=== PATIENT | female | born 1965 | race Caucasian/White ===

== ENCOUNTER 2018-07-13 07:08 | Emergency (ER) | payer OTHER ==
[2018-07-13] MEDS ORDERED: hydrOXYzine HCl 25 MG TAB ONE (07:37)
[2018-07-13] MEDS ORDERED: LORAZEPAM 1 MG TABLET ONE (07:37)
--- NOTE | 2018-07-13 08:02 | EDPHYS ---
Physician Documentation [facility] Name: Fortino Brennan Age: 53 yrs Sex: Female : 1965 Arrival Date: 07/13/2018 Time: 07:11 Bed 16 Private MD: Benjy Hernandez H ED Physician Uche Sesay HPI: 07/13 07:49 This 53 yrs old Female presents to ER via Ambulatory with complaints of Hives.snw 07:49 Onset: The symptoms/episode began/occurred suddenly, today, and became persistent. snw Associated signs and symptoms: Pertinent positives: itching. Modifying factors: The patient symptoms are alleviated by nothing. The patient has experienced a previous episode, s/s lasted 10 months. It is unknown whether or not the patient has recently seen a physician. just finished half triathalon . 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 - Social history:: Smoking status: Patient/guardian denies using tobacco, Patient/guardian denies using alcohol. - Ebola Screening: : Patient negative for fever greater than or equal to 101.5 degrees Fahrenheit, and additional compatible Ebola Virus Disease symptoms Patient denies exposure to infectious person Patient denies travel to an Ebola-affected area in the 21 days before illness onset. ROS: 07:49 Constitutional: Negative for fever, chills, and weight loss, Eyes: Negative for injury, snw pain, redness, and discharge, ENT: Negative for injury, pain, and discharge, Neck: Negative for injury, pain, and swelling, Cardiovascular: Negative for chest pain, palpitations, and edema, Respiratory: Negative for shortness of breath, cough, wheezing, and pleuritic chest pain, Abdomen/GI: Negative for abdominal pain, nausea, vomiting, diarrhea, and constipation, Back: Negative for injury and pain, : Negative for injury, bleeding, discharge, and swelling, MS/Extremity: Negative for injury and deformity, Neuro: Negative for headache, weakness, numbness, tingling, and seizure. 07:49 Skin: Positive for rash. Exam: 07:47 Constitutional: This is a well developed, well nourished patient who is awake, alert, snw and in no acute distress. Eyes: Pupils equal round and reactive to light, extra-ocular motions intact. Lids and lashes normal. Conjunctiva and sclera are non-icteric and not injected. Cornea within normal limits. Periorbital areas with no swelling, redness, or edema. ENT: Nares patent. No nasal discharge, no septal abnormalities noted. Tympanic membranes are normal and external auditory canals are clear. Oropharynx with no redness, swelling, or masses, exudates, or evidence of obstruction, uvula midline. Mucous membranes moist. Neck: Trachea midline, no thyromegaly or masses palpated, and no cervical lymphadenopathy. Supple, full range of motion without nuchal rigidity, or vertebral point tenderness. No Meningismus. Chest/axilla: Normal chest wall appearance and motion. Nontender with no deformity. No lesions are appreciated. Cardiovascular: Regular rate and rhythm with a normal S1 and S2. No gallops, murmurs, or rubs. Normal PMI, no JVD. No pulse deficits. Respiratory: Lungs have equal breath sounds bilaterally, clear to auscultation and percussion. No rales, rhonchi or wheezes noted. No increased work of breathing, no retractions or nasal flaring. Abdomen/GI: Soft, non-tender, with normal bowel sounds. No distension or tympany. No guarding or rebound. No evidence of tenderness throughout. MS/ Extremity: Pulses equal, no cyanosis. Neurovascular intact. Full, normal range of motion. Neuro: Awake and alert, GCS 15, oriented to person, place, time, and situation. Cranial nerves II-XII grossly intact. Motor strength 5/5 in all extremities. Sensory grossly intact. Cerebellar exam normal. Normal gait. 07:47 Head/face: Noted is swelling, that is mild, of the right jaw and left jaw, of the urticarial . 07:47 Back: mildly Sukumar tree shaped rash. 07:47 Skin: Appearance: normal except for affected area, urticarial rash to trunk and face. Vital Signs: 07:20 BP 159 / 104; Pulse 67; Resp 18; Temp 98.4(O); Pulse Ox 100% on R/A; Weight 68.04 kg; hj Height 5 ft. 9 in. (175.26 cm); 07:58 BP 131 / 85; Pulse 69; Resp 18; Pulse Ox 100% on R/A; hj 08:14 BP 130 / 87; Pulse 69; Resp 18; Pulse Ox 100% on R/A; hj 07:20 Body Mass Index 22.15 (68.04 kg, 175.26 cm) hj MDM: 07:13 Patient medically screened. snw 08:02 Data reviewed: vital signs, nurses notes. Data interpreted: Pulse oximetry: on room air snw is 100 %. Interpretation: normal. Counseling: I had a detailed discussion with the patient and/or guardian regarding: the historical points, exam findings, and any diagnostic results supporting the discharge/admit diagnosis, the presence of at least one elevated blood pressure reading (>120/80) during this emergency department visit, the need for outpatient follow up, to return to the emergency department if symptoms worsen or persist or if there are any questions or concerns that arise at home. Response to treatment: the patient's symptoms have markedly improved after treatment. Special discussion: I have referred the patient to see his PCP for further evaluation of high blood pressure. Based on the history and exam findings, there is no indication for further emergent testing or inpatient evaluation. I discussed with the patient/guardian the need to see the nail technician teacher for further evaluation of the symptoms. Administered Medications: 07:20 Drug: Atarax 50 mg Route: PO; 08:15 Follow up: Response: No adverse reaction 07:20 Drug: Ativan 2 mg Route: PO; hj 08:16 Follow up: Response: No adverse reaction Disposition: 12:10 Co-signature as Attending Physician, Uche Sesay MD I agree with the assessment and kdr plan of care. Disposition: 07/13/18 08:01 Discharged to Home. Impression: Urticaria, unspecified. - Condition is Stable. - Discharge Instructions: Hives, Pityriasis Rosea. - Prescriptions for Vistaril 50 mg Oral capsule - take 1 capsule by ORAL route 4 times per day Prn itching; 30 capsule. - Medication Reconciliation Form, Thank You Letter, Antibiotic Education, Prescription Opioid Use form. - Follow up: Benjy Hernandez DO; When: 2 - 3 days; Reason: Recheck today's complaints, Continuance of care, Re-evaluation by your physician. Follow up: Emergency Department; When: As needed; Reason: Recheck today's complaints, Continuance of care, Re-evaluation by your physician. - Problem is an acute exacerbation. - Symptoms are unchanged. Signatures: Uche Sesay MD MD [facility] Vickie Heard, LEAD INFRASTRUCTURE ARCHITECT-C LEAD INFRASTRUCTURE ARCHITECT-Csnw Juvenal Zamora RN RN hj Corrections: (The following items were deleted from the chart) 08:16 08:01 07/13/2018 08:01 Discharged to Home. Impression: Urticaria, unspecified. hj Condition is Stable. Forms are Medication Reconciliation Form, Thank You Letter, Antibiotic Education, Prescription Opioid Use. Follow up: Benjy Hernandez; When: 2 - 3 days; Reason: Recheck today's complaints, Continuance of care, Re-evaluation by your physician. Follow up: Emergency Department; When: As needed; Reason: Recheck today's complaints, Continuance of care, Re-evaluation by your physician. Problem is an acute exacerbation. Symptoms are unchanged. snw
--- NOTE | 2018-07-13 08:02 | ER ---
Nurse's Notes [facility] Name: Fortino Brennan Age: 53 yrs Sex: Female : 1965 Arrival Date: 07/13/2018 Time: 07:11 Bed 16 Private MD: Benjy Hernandez H Diagnosis: Urticaria, unspecified Presentation: 07/13 07:17 Presenting complaint: Patient states: i broke up in hives for 2 weeks now, in the face, hj arms, belly area, back; reports itchiness, denies F/C;. Transition of care: patient was not received from another setting of care. Onset: The symptoms/episode began/occurred last week. Anaphylaxis evaluation, no signs or symptoms of anaphylaxis were noted. Onset of symptoms was July 13, 2018. Risk Assessment: Do you want to hurt yourself or someone else? Patient reports no desire to harm self or others. Initial Sepsis Screen: Does the patient meet any 2 criteria? No. Patient's initial sepsis screen is negative. Does the patient have a suspected source of infection? No. Patient's initial sepsis screen is negative. Care prior to arrival: None. 07:17 Method Of Arrival: Ambulatory 07:17 Acuity: RAMONE 4 hj Triage Assessment: 07:21 General: Appears in no apparent distress. uncomfortable, Behavior is calm, cooperative, hj appropriate for age. Pain: Denies pain. 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 - Social history:: Smoking status: Patient/guardian denies using tobacco, Patient/guardian denies using alcohol. - Ebola Screening: : Patient negative for fever greater than or equal to 101.5 degrees Fahrenheit, and additional compatible Ebola Virus Disease symptoms Patient denies exposure to infectious person Patient denies travel to an Ebola-affected area in the 21 days before illness onset. Screenin:20 Abuse screen: Denies threats or abuse. Denies injuries from another. Nutritional hj screening: No deficits noted. Tuberculosis screening: No symptoms or risk factors identified. Fall Risk None identified. Assessment: 07:21 Respiratory: Airway is patent Respiratory effort is even, unlabored, Respiratory hj pattern is regular, symmetrical, Breath sounds are clear. 07:21 General: Appears in no apparent distress. uncomfortable, Behavior is calm, cooperative, hj appropriate for age. Pain: Denies pain. Neuro: Level of Consciousness is awake, alert, obeys commands, Oriented to person, place, time, situation, Appropriate for age. Cardiovascular: Capillary refill < 3 seconds Patient's skin is warm and dry. GI: No signs and/or symptoms were reported involving the gastrointestinal system. : No signs and/or symptoms were reported regarding the genitourinary system. EENT: No signs and/or symptoms were reported regarding the EENT system. Derm: Reports itching, hives on arms, face and back. Musculoskeletal: No signs and/or symptoms reported regarding the musculoskeletal system. 07:50 Reassessment: Patient and/or family updated on plan of care and expected duration. Pain hj level reassessed. Patient is alert, oriented x 3, equal unlabored respirations, skin warm/dry/pink. pt states: "it starting to clear up". Vital Signs: 07:20 BP 159 / 104; Pulse 67; Resp 18; Temp 98.4(O); Pulse Ox 100% on R/A; Weight 68.04 kg; hj Height 5 ft. 9 in. (175.26 cm); 07:58 BP 131 / 85; Pulse 69; Resp 18; Pulse Ox 100% on R/A; hj 08:14 BP 130 / 87; Pulse 69; Resp 18; Pulse Ox 100% on R/A; hj 07:20 Body Mass Index 22.15 (68.04 kg, 175.26 cm) ED Course: 07:11 Patient arrived in ED. mr 07:11 Benjy Hernandez DO is Private Physician. mr 07:13 [facility]C [facility] snw 07:13 Uche Sesay MD is Attending Physician. snw 07:17 Juvenal Zamora, KAVITHA is Primary Nurse. hj 07:19 Triage completed. hj 07:22 Arm band placed on right wrist. hj 07:22 Patient has correct armband on for positive identification. Bed in low position. Call hj light in reach. Side rails up X 1. Adult w/ patient. 08:00 Benjy Hernandez DO is Referral Physician. snw 08:14 No provider procedures requiring assistance completed. Patient did not have IV access hj during this emergency room visit. Administered Medications: 07:20 Drug: Atarax 50 mg Route: PO; hj 08:15 Follow up: Response: No adverse reaction hj 07:20 Drug: Ativan 2 mg Route: PO; hj 08:16 Follow up: Response: No adverse reaction hj Outcome: 08:01 Discharge ordered by MD. snw 08:15 Discharged to home ambulatory, with family. hj 08:15 Condition: stable 08:15 Discharge instructions given to patient, family, Instructed on discharge instructions, follow up and referral plans. medication usage, Demonstrated understanding of instructions, follow-up care, medications, Prescriptions given X 1. 08:16 Patient left the ED. hj Signatures: Vickie Heard, NEW ACCOUNTS REPRESENTATIVE-C NEW ACCOUNTS REPRESENTATIVE-Tamara Hernandez Henry, RN RN hj Corrections: (The following items were deleted from the chart) 07:50 07:21 Derm: No signs and/or symptoms reported regarding the dermatologic system. hj hj 07:51 07:50 Reassessment: Patient and/or family updated on plan of care and expected hj duration. Pain level reassessed. Patient is alert, oriented x 3, equal unlabored respirations, skin warm/dry/pink. pt states: "it started to clear up" hj
== END 2018-07-13 08:16 | disposition home or self-care (01) ==
LOC: ER 07:08
DX: L50.9 Urticaria, unspecified (principal)
CPT/HCPCS: 99283